=== PATIENT | male | born 1970 | race Caucasian/White ===

== ENCOUNTER 2025-02-15 10:06 | Day surgery (SDC) | payer OTHER ==
[2025-02-15] VITALS (11 sets, daily range): BP systolic 94–161; BP diastolic 48–91
[~2025-02-15] VITALS: Ht 188 cm; Wt 124.0 kg
[~2025-02-15 10:06] MED LIST: Aspir 8181 MG PO; CYCL10 PO; HYDACE5 PO; META800 PO; METPRE4DP PO; NAPR500 PO; RXCYCL10 PO; VITAMINS; Zovirax800 MG PO
[2025-02-15] MEDS ORDERED: NS 250 ML IV ONE (13:05)
[2025-02-15] MEDS ORDERED: Heparin Sodium 1000 Units/ML 10ML MDV ONE ×2 (13:05→13:13)
[2025-02-15] MEDS ORDERED: NS 1,000 ML IV ONE ×2 (13:05→13:13)
[2025-02-15] MEDS ORDERED: Verapamil HCL 2.5 MG/ML 2ML Injection ONE (13:05)
[2025-02-15] MEDS ORDERED: Nitroglycerin 2 MG/20 ML BTL ONE (13:06)
[2025-02-15] MEDS ORDERED: Midazolam HCl 1MG / ML 2ML Vial ONE (13:35)
[2025-02-15] MEDS ORDERED: FentaNYL Citrate 50 MCG/ML 2 ML Injection ONE (13:35)
--- NOTE | 2025-02-15 14:11 | NUR ---
PATIENT ARRIVED TO RECOVERY ROOM SITTING UPRIGHT IN RECLINER. RIGHT RADIAL TR BAND IN PLACE. SITE C/D/I SOFT/NONTENDER, NO EVIDENCE OF BLEEDING. VSS ON RA. PATIENT DENYING ANY PAIN. PATIENT CONVERSING APPROPRIATELY. SPOUSE PRESENT AT BEDSIDE.
[2025-02-15] MEDS ORDERED: Ondansetron HCl 2 MG / ML 2ML Vial ONE (14:29)
--- NOTE | 2025-02-15 14:30 | NUR ---
PATIENTS SPOUSE AT BEDSIDE TELLING NURSE THAT PATIENT FEELS LIKE HE IS GOING TO PASS OUT AND IS NAUSEATED. PATIENT BEGINNING TO NATALIIA DOWN AND BECOME HYPOTENSIVE. BOLUS OF FLUIDS GIVEN. MD NOTIFIED AND AT BEDSIDE RIGHT AWAY. EKG PERFORMED. 1 MG OF ATROPINE GIVEN WITH MD PRESENT AT BEDSIDE. WILL CONTINUE TO MONITOR.
--- NOTE | 2025-02-15 14:45 | NUR ---
PATIENTS SYMPTOMS RESOLVED. PATIENT COVNERSING APPROPRIATELY. VS WNL. WILL CONTINUE TO MONITOR.
--- NOTE | 2025-02-15 14:58 | NUR ---
STAT ECHO PERFORMED AT BEDSIDE. MD PRESENT.
--- NOTE | 2025-02-15 15:22 | NUR ---
TR band deflation intitated per protocol.
--- NOTE | 2025-02-15 15:31 | NUR ---
ALL AIR IS REMOVED FROM BAND AT THIS TIME.
--- NOTE | 2025-02-15 16:02 | NUR ---
DISCHARGE INSTRUCTIONS REVIEWED IN DETAIL. PT. AT BEDSIDE FOR DISCHARGE INSTRUCTIONS. IV REMOVED CATHTER INTACT, TR BAND SITE WNL.
--- NOTE | 2025-02-15 16:12 | NUR ---
PT REFUSED WHEELCHAIR AND AMBULATED TO EXIT WITH WITH OUT DIFFICULTY. VSS UPON DEPARTURE. DORONN.
== END 2025-02-15 16:15 | disposition home or self-care (01) ==
LOC: MHTC 10:06
DX: R94.39 Abnormal result of other cardiovascular function study (principal); E78.5 Hyperlipidemia, unspecified; I48.0 Paroxysmal atrial fibrillation; E11.9 Type 2 diabetes mellitus without complications; Z79.82 Long term (current) use of aspirin; Z91.030 Bee allergy status; Z91.018 Allergy to other foods
CPT/HCPCS: 76937; 82947; 93005; 93010; 93458; 99152; 99153; C1769; C1887; C1894; C8929; J0461; J1644; J2250; J2405; J3010; J7030; J7050; Q9957; Q9967